=== PATIENT | female | born 1970 | race Caucasian/White ===

== ENCOUNTER 2017-09-20 15:07 | Emergency (ER) | payer SELFPAY ==
[2017-09-20] MEDS: IBUPROFEN 600 MG TAB PO (16:15)
[2017-09-20 16:36] LABS: ADD MAN DIFF? NO
[2017-09-20 16:44] LABS: BASOPHILS % 0.6 % (0.0-2.0); EOSINOPHILS # 0.1 10^3/ul (0.0-0.5); LYMPHOCYTES # 2.3 10^3/ul (0.8-2.9); LYMPHOCYTES % 37.6 % (15.0-51.0); MEAN CORPUSCULAR HGB CONC 31.6 g/dl (32.0-37.0); MEAN CORPUSCULAR VOLUME 82.3 fl (82.0-101.0); MEAN PLATELET VOLUME 9.8 fl (7.4-10.4); MONOCYTE # 0.5 10^3/ul (0.3-0.9); MONOCYTES % 7.9 % (0.0-11.0); NEUTROPHIL # 3.3 10^3/ul (1.6-7.5); NEUTROPHILS % 52.6 % (39.0-77.0); PLATELET COUNT 310 10^3/UL (140-415); RED BLOOD COUNT 4.62 10^6/ul (4.20-5.40); RED CELL DISTRIBUTION WIDTH 13.9 % (11.5-14.5)
[2017-09-20 16:44] LABS: WHITE BLOOD COUNT 6.2 10^3/ul (4.8-10.8)
[2017-09-20 17:03] LABS: ANION GAP 17 (8-16); BLOOD UREA NITROGEN 15 mg/dl (7-20); CARBON DIOXIDE 26 mmol/L (21-31); CHLORIDE 105 mmol/L (97-110); CREATININE 0.76 mg/dl (0.44-1.00); GLUCOSE 96 mg/dl (70-220); POTASSIUM 3.8 mmol/L (3.5-5.1); SODIUM 144 mmol/L (135-144)
[2017-09-20 17:20] LABS: TROPONIN-I < 0.012 ng/ml (0.00-0.12)
== END 2017-09-20 17:46 | disposition home or self-care (01) ==
LOC: FTE 15:07
DX: M54.2 Cervicalgia (principal); R07.9 Chest pain, unspecified
CPT/HCPCS: 36415; 71045; 72040; 73030; 73080-LT; 80048; 84484; 85025; 93005; 99285-25

== ENCOUNTER 2018-04-07 19:52 | Emergency (ER) | payer MEDICAID ==
[2018-04-07] MEDS: KETOROLAC 60 MG INJ IM (23:31)
== END 2018-04-08 00:13 | disposition home or self-care (01) ==
LOC: FTE 04-08 00:13
DX: M54.12 Radiculopathy, cervical region (principal); M54.2 Cervicalgia
CPT/HCPCS: 81025; 93005; 96372; 99284-25